=== PATIENT | female | born 1950 | race Caucasian/White ===

== ENCOUNTER 2017-01-16 06:01 | Inpatient (IN) | payer MEDICARE ==
--- OUTSIDE RECORDS SUMMARY | 2017-01-16 06:06 | XMS | Clinical Summary ---
:1950 Author Organization [facility] Address [address] [place] [address] Phone Care Team Providers Name Role Phone , Primary Care Provider Unavailable Allergies No Known Allergies Current Medications Prescription Sig. Disp. Refills Start Date End Date Status insulin glargine Inject subcutaneously Active (LANTUS) 100 unit/mL nightly Use as injection directed . insulin lispro Inject subcutaneously Active (HUMALOG) 100 unit/mL 3 (three) times daily injection before meals. ramipril (ALTACE) 10 Take 10 mg by mouth Active MG capsule daily. verapamil (CALAN-SR) Take 180 mg by mouth Active 180 MG CR tablet nightly. lovastatin (MEVACOR) Take 20 mg by mouth Active 20 MG tablet nightly. pioglitazone (ACTOS) Take 15 mg by mouth Active 15 MG tablet daily. chlorthalidone Take 25 mg by mouth Active (HYGROTON) 25 MG daily. tablet memantine (NAMENDA) 10 Take 10 mg by mouth 2 Active MG tablet (two) times daily. bromfenac 0.07 % Drop Apply to eye(s). Active difluprednate 0.05 % Apply to eye(s). Active Drop polymyxin B Place 1 drop into the Active sulf-trimethoprim left eye every 4 10,000 unit- 1 mg/mL (four) hours. Drop Active Problems Not on file Social History Tobacco Use Types Packs/Day Years Used Date Never Smoker Alcohol Use Drinks/Week oz/Week Comments No Sex Assigned at Date Recorded Not on file Last Filed Vital Signs Vital Sign Reading Time Taken Blood Pressure 121/54 08/24/2015 11:40 AM CDT Pulse 83 08/24/2015 11:50 AM CDT Temperature 37.1 C (98.8 F) 08/24/2015 11:33 AM CDT Respiratory Rate 16 08/24/2015 11:50 AM CDT Oxygen Saturation 97% 08/24/2015 11:50 AM CDT Inhaled Oxygen Concentration - - Weight 61.2 kg (135 lb) 08/24/2015 9:36 AM CDT Height 157.5 cm (5' 2") 08/24/2015 9:36 AM CDT Body Mass Index 24.69 08/24/2015 9:36 AM CDT Plan of Treatment Not on file Implants Implanted Type Area Structures Technician Device Expiration Model / Identifier Date Serial / Lot Iol Tecnis Zcb00 23.5 Robin [id number] - [id number] Ophthalmology [employer] 04/29/2019 [id number] / Implanted:Qty: 1 on 08/24/2015 by José Miguel Vaughan MD [id number] / Results Not on filefrom Last 3 Months
[2017-01-16] MEDS ORDERED: Heparin 5,000 UNITS/ML VIAL ONE (06:38)
[2017-01-16] MEDS ORDERED: Protamine Sulfate 50 MG/5 ML VIAL ONE (06:38)
[2017-01-16 06:44] LABS: #Eosinphils 0.2 thou/uL (0.0-0.7); #Monocytes 0.9 thou/uL (0.11-0.59); #Neutrophils 11.4 thou/uL (1.40-6.50); %Basophils 0.1 % (0.0-1.0); %Eosinophils 1.1 % (0.0-10.0); %Lymphocytes 24.2 % (21.0-51.0); %Monocytes 5.2 % (0.0-10.0); Red Blood Cell (RBC) Count 3.49 mill/uL (4.20-5.40); White Blood Cell (WBC) Count 16.5 thou/uL (4.8-10.8)
[2017-01-16 06:59] LABS: Anion Gap 16 mmol/L (10-20); BUN (Urea Nitrogen) 30 mg/dL (9.8-20.1); Calc. Creatinine Clearance 50 mL/min (70-130); Calcium 10.1 mg/dL (7.8-10.44); Carbon Dioxide 24 mmol/L (23-31); Chloride 101 mmol/L (98-107); Estimated GFR-MDRD 54
[2017-01-16] MEDS ORDERED: Fentanyl 100 MCG/2 ML VIAL ONE ×2 (07:10→07:35)
[2017-01-16] MEDS ORDERED: Propofol 200 MG/20 ML VIAL ONE (07:41)
[2017-01-16] MEDS ORDERED: Ondansetron HCl/PF 4 MG/2 ML Vial ONE (07:41)
[2017-01-16] MEDS ORDERED: PHENYLEPHRINE-NS 100 MCG/ML 10 ML SYRINGE ONE (07:41)
[2017-01-16] MEDS ORDERED: Lidocaine 2% PF 10 ML AMP (For Epidural Use) ONE (07:41)
[2017-01-16] MEDS ORDERED: Ondansetron HCl/PF 4 MG/2 ML Vial IVP PRN ×2 (10:04→10:05)
[2017-01-16] MEDS ORDERED: Acetaminophen 325 MG TAB PO PRN (10:04)
[2017-01-16] MEDS ORDERED: HYDROcodone/Acetaminophen 5/325 mg Tablet PO PRN ×2 (10:04)
[2017-01-16] MEDS ORDERED: Phenylephrine 10 MG/NS 250 ML 250 ML IVPB PRN (10:04)
[2017-01-16] MEDS ORDERED: DOPamine 400 MG/D5W 250 ML 250 ML IVPB PRN (10:04)
[2017-01-16] MEDS ORDERED: Morphine Sulfate 2 MG/ML SYRINGE SLOW IVP PRN (10:04)
[2017-01-16] MEDS ORDERED: Fentanyl 100 MCG/2 ML VIAL SLOW IVP PRN ×2 (10:04)
[2017-01-16] MEDS ORDERED: Nitroglycerin 50 MG/250 ML BOT 250 ML IVPB PRN (10:04)
[2017-01-16] MEDS ORDERED: Promethazine HCl 25 MG/ML VIAL IM PRN (10:04)
[2017-01-16] MEDS ORDERED: Insulin Regular 300 UNITS/3 ML VIAL SC PRN (10:04)
[2017-01-16] MEDS ORDERED: Meperidine HCl/PF 25 MG/ML VIAL SLOW IVP PRN (10:05)
[2017-01-16] MEDS ORDERED: Clopidogrel Bisulfate 75 MG TAB PO SCH (10:45)
--- NOTE | 2017-01-16 10:49 | OP ---
PREOPERATIVE DIAGNOSIS: Severe right carotid artery stenosis. SURGEON: Oh Clayton M.D. MANUFACTURING PLANT CONTROLLER: None. POSTOPERATIVE DIAGNOSIS: Severe right carotid artery stenosis. SPONGE AND NEEDLE COUNTS: Correct. ANESTHESIA: General. OPERATION PERFORMED: Right carotid endarterectomy with bovine pericardium patch angioplasty. FINDINGS AT OPERATION: Heavily calcified and friable plaque involving the bulb and proximal ICA. DESCRIPTION OF OPERATION: The patient was taken to the operating room. Following the induction of general endotracheal anesthesia, the patient was prepped and draped in the usual sterile fashion. Skin incision was made parallel to the anterior border of the sternocleidomastoid muscle and deepened through the subcutaneous tissues and platysma. Carotid sheath was entered, identifying the vagus nerve in its proper posterior position. It had to be gently teased off the CCA and ICA. There appeared to be some inflammatory tissues likely related to recent SALES SOLUTIONS ASSOCIATE shunt placement. Isolation of the CCA, ECA , and ICA was performed. Hypoglossal nerve was visualized, however, not manipulated. ICA had a medial posterior lie related to the ECA. Heparin dose was given. Fine vascular clamps were applied to the above-mentioned vessels. Arteriotomy was created extending across the bulb and ICA to a point above the plaque. The #10 shunt was employed. Endarterectomy was then performed in standard fashion. An excellent feathering point was achieved in the ICA requiring no tacking sutures. Meticulous attention was made to retrieving all residual debris including before and after irrigation with heparinized saline. The arteriotomy was then closed with the bovine pericardium patch and running 6- 0 Prolene suture. Prior to securing the patch the shunt was removed, the ICA backflushed, and the site again irrigated with heparinized saline. It should be mentioned that she did have excellent backbleeding from the ICA. Clamps were removed from the ECA, CCA, and ICA in that order. Heparin was partially reversed with protamine. Copious irrigation was performed. Meticulous hemostasis was assured. Wound was then closed in layers with running 2-0 Vicryl sutures followed by skin closure with a 4-0 Vicryl subcuticular stitch. Dermabond was applied. The patient was subsequently awakened and taken to the recovery room. Blood loss negligible. MTDD
[2017-01-16] MEDS: Sodium Chloride 0.9% 1,000 ML IV SCH (11:51)
[2017-01-16 11:54] VITALS: BMI 25.0
[2017-01-16] MEDS: AcetaZOLAMIDE 250 MG TAB PO SCH ×3 (12:39→20:17)
[2017-01-16] MEDS: HumaLOG 300 UNITS/3 ML VIAL SC PRN ×3 (12:40→20:19)
[2017-01-17] MEDS: Sodium Chloride 0.9% 1,000 ML IV SCH (06:18)
[2017-01-17] MEDS: HumaLOG 300 UNITS/3 ML VIAL SC PRN ×2 (06:25→07:48)
[2017-01-17 07:49] VITALS: TEMP 98.7
[2017-01-17 08:33] VITALS: BP 156/53
[2017-01-17] MEDS: AcetaZOLAMIDE 250 MG TAB PO SCH (08:33)
[2017-01-17] MEDS ORDERED: Chlorthalidone 25 MG TAB PO SCH (09:00)
[2017-01-17] MEDS ORDERED: INSULIN GLARGINE HUM REC ANLOG 26 UNIT SC SCH (09:00)
[2017-01-17] MEDS ORDERED: PRE FILLED SC SCH (09:00)
[2017-01-17] MEDS ORDERED: Ramipril 5 MG CAP PO SCH (09:00)
[2017-01-17] MEDS ORDERED: INSULIN DETEMIR SC SCH (09:00)
[2017-01-17] MEDS ORDERED: Clopidogrel Bisulfate 75 MG TAB PO SCH (09:00)
[2017-01-17] MEDS ORDERED: Atorvastatin Calcium 40 MG TAB PO SCH (09:00)
--- NOTE | 2017-01-17 09:59 | DIS ---
REASON FOR ADMISSION: Right carotid endarterectomy. CLINICAL RESUME: The patient is a 66-year-old female who was recently found to have a severe right carotid artery stenosis. Left side had mild to moderate disease. Recommendation was made to proceed with elective right CEA. Yesterday , the patient was admitted and underwent right CEA with bovine pericardium patch angioplasty. See operative report for details. Her postoperative course has been unremarkable and as of today she was considered stable for discharge. Followup will be arranged in our office in 2 weeks or sooner p.r.n. DIET: 1800 calorie ADA. WOUND CARE: As instructed. ACTIVITY: Light for the next 4-5 days. DISCHARGE MEDICATIONS: She is to resume her complete home regimen without change including the daily Aspirin 81mg. New medication: Plavix 75 mg daily for 1 month. MTDD
== END 2017-01-17 09:00 | disposition home or self-care (01) | DRG 38 ==
LOC: SURG A 06:01 → CCU 11:21
PROVIDERS: ADMIT Thoracic Surgery (Cardiothoracic Vascular Surgery); ATTEND Thoracic Surgery (Cardiothoracic Vascular Surgery)
PROC: 03CK0ZZ Extirpation of Matter from Right Internal Carotid Artery, Open Approach (ICD-10-PCS; principal; 2017-01-16)
PROC: 03UK0KZ Supplement Right Internal Carotid Artery with Nonautologous Tissue Substitute, Open Approach (ICD-10-PCS; 2017-01-16)
DX: I65.23 Occlusion and stenosis of bilateral carotid arteries (principal); G91.2 (Idiopathic) normal pressure hydrocephalus; Z98.2 Presence of cerebrospinal fluid drainage device; E11.9 Type 2 diabetes mellitus without complications; Z79.4 Long term (current) use of insulin; E78.2 Mixed hyperlipidemia; I10 Essential (primary) hypertension
CPT/HCPCS: 36415; 36416; 80048; 85025; 94640; J0360; J1642; J1644; J1815; J2001; J2405; J2704; J2720; J3010; J7620

== ENCOUNTER 2017-01-30 18:02 | Observation (INO) | payer MEDICARE ==
[2017-01-30] MEDS ORDERED: Insulin Regular 300 UNITS/3 ML VIAL ONE (19:26)
[2017-01-30] MEDS ORDERED: Ondansetron ODT 4 MG TAB PO PRN (20:17)
[2017-01-30] MEDS ORDERED: Acetaminophen 325 MG TAB PO PRN (20:17)
[2017-01-30] MEDS ORDERED: cefTRIAXone\\ROCEPHIN 1 GM in Sodium Chloride 0.9% 100 ML IVPB SCH (20:30)
[2017-01-30 20:44] VITALS: BMI 23.4
[2017-01-30] MEDS: Sodium Chloride 0.9% 1,000 ML IV SCH ×2 (21:05→23:41)
[2017-01-30] MEDS: Potassium Chloride 40 MEQ in Sodium Chloride 0.9% 500 ML IVPB SCH (21:05)
[2017-01-30] MEDS: Famotidine 20 MG TAB PO SCH (21:13)
[2017-01-30 21:49] LABS: Bilirubin Negative (Negative); Blood, Urine Small (Negative); Glucose, Urine (Dipstick) >=1000 mg/dL (Negative); Ketone, Urine Negative (Negative); Nitrite Negative (Negative); Protein, Urine (Dipstick) 100 mg/dL (Neg-Trace); Urobilinogen 0.2 mg/dL (0.2-1.0)
[2017-01-30 21:50] LABS: Bacteria/HPF None Seen HPF (None Seen); Hyaline Casts/LPF 0-3 HYALINE CAST LPF (0-3 Hyaline); Squamous Epithelial 0-3 HPF (0-3); WBC/HPF 0-3 HPF (0-3)
[2017-01-30] MEDS ORDERED: Dextrose 50% Abboject 50 ML SYRINGE SLOW IVP PRN ×2 (21:54→22:45)
[2017-01-30] MEDS ORDERED: Dextrose 5% in Water 1,000 ML IV PRN ×2 (21:54→22:45)
[2017-01-30 22:04] LABS: Hemoglobin A1c 7.7 % (4.0-6.0)
[2017-01-30] MEDS ORDERED: Famotidine 20 MG TAB PO SCH (22:30)
[2017-01-30] MEDS ORDERED: Ramipril 5 MG CAP PO SCH (22:30)
[2017-01-30] MEDS ORDERED: Prevnar 13-Val Conj/PF 0.5 ML SYRINGE IM ONE (22:30)
[2017-01-30] MEDS ORDERED: Clopidogrel Bisulfate 75 MG TAB PO SCH (22:45)
[2017-01-30] MEDS ORDERED: HumaLOG 300 UNITS/3 ML VIAL SC PRN (22:45)
[2017-01-30] MEDS ORDERED: Atorvastatin Calcium 40 MG TAB PO SCH (22:45)
--- NOTE | 2017-01-30 22:54 | PDOC.EVN ---
Event Note - Event Note Event Note: Attending H&P I personally evaluated the patient and discussed the management with Dr. Narvaez. I have reviewed the H&P and it is repeated by me. I agree with the History, Examination, Assessment and Plan documented above with any addition or exceptions noted below. Mrs Rodriguez had syncope today. Likely etiology is Orthostatic Hypotension due ti dehydration secondary to diuretic and glucosuria wihtout compensatory po fluid intake. Treatment with fluids should resolve this. NS adn Vasc surg will see her inlight of her recent Carotid endarterectomy and CERTIFIED MASTER SAFECRACKER Shunt placement. The other concern is her persistently elevated WBC count. There are no signs or symptoms of infection. Cultures from her last admission were all negative. I am inclined to think this a myeloproliferative process. A PB Smear will be obtained. Although Cultures were obtained in the ER, I am holding antibiotics. We will discuss with NS if CSF cultures should be obtained. There is currently no signs or symptoms of meningitis. Her BP is not controlled. She is asymptomatic. She missed her evening dose of BP meds. Thee are coming up from pharmacy now. In addition to her regularly scheduled meds we are adding hydralazine prn. We will obtain a Renal artery Doppler in light of her requiring 3-4 meds. ISS for her DM management.
[2017-01-30 23:21] LABS: Hematocrit 27.4 % (36.0-47.0); Mean Platelet Volume 7.8 fL (7.4-10.4); Neutrophil 73 % (42-75); Red Blood Cell (RBC) Count 2.96 mill/uL (4.20-5.40); White Blood Cell (WBC) Count 16.1 thou/uL (4.8-10.8)
[2017-01-31] MEDS ORDERED: Potassium Chloride 40 MEQ in Sodium Chloride 0.9% 500 ML IVPB SCH (00:30)
[2017-01-31] MEDS: Sodium Chloride 0.9% 1,000 ML IV SCH ×3 (00:35→17:37)
[2017-01-31] MEDS: Potassium Chloride 40 MEQ in Sodium Chloride 0.9% 500 ML IVPB SCH (00:35)
[2017-01-31] MEDS ORDERED: Labetalol HCl 100 MG/20 ML VIAL SLOW IVP PRN (00:35)
--- NOTE | 2017-01-31 03:52 | HP-2 ---
CODE STATUS: FULL. PRIMARY CARE PHYSICIAN: Jalyn jiang. ATTENDING PHYSICIAN: Anmol Flaherty M.D. PGY-1: Kofi Narvaez MD CHIEF COMPLAINT: Syncope. HISTORY OF PRESENT ILLNESS: We have a 66-year-old female who presents for a syncopal episode that occurred around noon today. She states she was at the checkout at a grocery store and felt like she was going to blackout. She does not know if she felt sweaty or pale but just felt like she was going to go down. She denies vision changes, shortness of breath, chest pain, unilateral weakness at that time. She notes her blood sugar was 280s at that time that was checked after she fell down. She was transferred to from [place] because of her recent surgeries of a shunt placement and a carotid endarterectomy within the last 6 weeks. PAST MEDICAL HISTORY: She has diabetes mellitus type 1, hypertension, and hyperlipidemia. PAST SURGICAL HISTORY: She has had a hysterectomy and cataract surgeries in the past. She also had a shunt placement and CEA in 2017. ALLERGIES: She has no known drug allergies. MEDICATIONS: She is on atorvastatin 40 mg, ramipril 10 mg b.i.d., Lantus 26 units in the morning, chlorthalidone 12.5 mg, aspirin 81 mg, clopidogrel 75 mg, pioglitazone 15 mg, and memantine unsure of the dosage. FAMILY HISTORY: Her mom had of heart disease and her dad had dementia. SOCIAL HISTORY: She denies tobacco, alcohol, or drug use. REVIEW OF SYSTEMS: GENERAL: She denies any fevers, weight changes, or night sweats. She does admit to chills. EYES: She denies any vision changes or eye pain. ENT: She admits to nasal congestion, rhinorrhea. RESPIRATORY: She admits to cough, congestion. Denies shortness of breath. CARDIOVASCULAR: Denies chest pain, palpitations. GASTROINTESTINAL: She admits to nausea. Denies vomiting or diarrhea. She does admit to constipation. Denies abdominal pain or GI bleeding. GENITOURINARY: Denies incontinence or dysuria, but she did note some slowing of her urination stream. SKIN: She denies any rashes, lesions, jaundice, or itching. MUSCULOSKELETAL: She denies any pain, tenderness, stiffness, or swelling. NEUROLOGIC: She denies any weakness or numbness. She does admit to syncopal episodes in the past that were from low blood sugar. PSYCHIATRIC: She denies anxiety or depression history. PHYSICAL EXAMINATION: VITAL SIGNS: Blood pressure was 173/60, pulse was 94, respirations were 16, temperature max was 98.4, pulse ox 98% on room air, current weight is 61 kilos. GENERAL: She is alert and oriented x4. She is appropriately interactive. EYES: PERRLA. Conjunctivae are within normal limits. ENT: Nasal mucosa and oropharynx were within normal limits. NECK: Supple, without lymphadenopathy, without thyromegaly. She does have bilateral bruits present. She has evidence of the right carotid endarterectomy that was performed 3 weeks ago. CARDIOVASCULAR: Regular rate and rhythm. She does have a murmur present. Radial pulses and pedal pulses are equal and present bilaterally. RESPIRATORY: Normal effort, no retractions. Lungs were clear to auscultations bilaterally. SKIN: Warm and dry. ABDOMEN: Soft, nontender to palpation. She had bowel sounds present x4. No masses or distention. EXTREMITIES: She denied any clubbing, cyanosis, or edema, but she does have multiple ecchymoses from her recent fall at the grocery store. MUSCULOSKELETAL: Structure, tone, muscle strength, and range of motion within normal limits. NEUROLOGIC: She had no focal neurologic deficits. Cranial nerves II through XII grossly intact. GCS was 15. PSYCHIATRIC: She was appropriate. LABORATORY DATA: These were obtained from an outside ER. Her white blood cell count of 25.36, platelet count of 473, hemoglobin 10.3, hematocrit 29.5, MCV 85.3. Sodium 145, potassium 3.2, chloride 103, bicarbonate 26, BUN 23.4, creatinine 1.2, calcium 10.66, total protein 7.8, albumin 3.9, total bilirubin 0.2, AST 10, ALT 11, alkaline phosphatase 191, lactate was 3.7. CK was 41, CK- MB was 0.5, troponin I was less than 0.01. She had a CT of her brain at the outside ER showed nothing acute, did show a shunt catheter in place with minimal decrease in size of ventricles as compared to the previous. She also had a chest x-ray that showed nothing acute. ASSESSMENT AND PLAN: A 66-year-old female with a past history of diabetes mellitus type 1, hypertension, hyperlipidemia, and hydrocephalus that presents with: 1. Syncopal episode. We are going to get an echocardiogram. We are going to repeat her orthostatics because those were positive in the outside ER. We have the imaging results and we will consider a Neurosurgery consult as well as a cardiovascular consult for her recent surgeries. We are going to get a repeat EKG and get a urinalysis to see if we can find out if an infection is the cause. 2. Systemic inflammatory response syndrome. She has an increased white blood cell count and increased heart rate. We are going to check a urinalysis. Her chest x-ray was negative. We have urine cultures and blood cultures pending. During her last hospitalization, she had this leukocytosis and Dr. Dominguez with ID was consulted at that time and thought to be a urinary retention. She had multiple studies at that time and they were all negative and so we will work this up again. We will await antibiotic therapy unless she fevers. 3. She has an elevated lactate level. We are going to give her IV fluids. We will repeat her lactate until it is normalized. 3. Hypertensive urgency. We will restart her home medications. She has also had low BP as well, so we will repeat those orthostatics. We will continue to monitor and we are going to provide hydralazine every 15 minutes p.r.n. for systolic blood pressure greater than 180. 4. Type 1 diabetes mellitus. We are going to continue her home medications except for pioglitazone and put her on a sliding scale insulin with Accu-Cheks. 5. Hyperlipidemia. We will continue her statin. 6. Hydrocephalus with a ventriculoperitoneal shunt. We will consider consulting Neurosurgery in the morning. 7. Bilateral carotid stenosis with bruit. She just had a CEA about 3 weeks ago that showed 80% in the right side, 50% in the left side. The right side was operated on, so we will consider a consultation with the surgeon who performed that going forward. 8. Leukocytosis. We will monitor CBC. We will hold off starting Rocephin unless she fevers and we will give her IV fluids. 9. Mild hypokalemia. We will supplement her with 40 mEq of potassium chloride going forward and we will monitor that with daily BMPs. Disposition and length of hospital stay will be tele and observation. Symptomatic medications will be provided. History and physical exam, as well as management, has been discussed with Dr. Flaherty. JOLENE
[2017-01-31 05:02] LABS: #Basophils 0.1 thou/uL (0.0-0.2); #Eosinphils 0.1 thou/uL (0.0-0.7); #Lymphocytes 3.7 thou/uL (1.20-3.40); #Neutrophils 12.6 thou/uL (1.40-6.50); %Basophils 0.5 % (0.0-1.0); %Eosinophils 0.6 % (0.0-10.0); %Lymphocytes 21.2 % (21.0-51.0); %Monocytes 5.6 % (0.0-10.0); Hematocrit 26.4 % (36.0-47.0); Mean Platelet Volume 7.5 fL (7.4-10.4); Red Blood Cell (RBC) Count 2.82 mill/uL (4.20-5.40); White Blood Cell (WBC) Count 17.5 thou/uL (4.8-10.8)
[2017-01-31 05:41] LABS: Anion Gap 10 mmol/L (10-20); BUN (Urea Nitrogen) 16 mg/dL (9.8-20.1); Calc. Creatinine Clearance 64 mL/min (70-130); Calcium 9.1 mg/dL (7.8-10.44); Carbon Dioxide 24 mmol/L (23-31); Chloride 108 mmol/L (98-107); Estimated GFR-MDRD 73
[2017-01-31] MEDS: HumaLOG 300 UNITS/3 ML VIAL SC PRN ×2 (06:05→08:40)
--- NOTE | 2017-01-31 07:00 | PDOC.FM ---
- Subjective Subjective: Patient doing well this morning, she has remained asymptomatic overnight. Has no questions or concerns. Denies dizziness, lightheadedness, chest pain, palpitations, n/v/d. - Objective MAR Reviewed: Yes Vital Signs & Weight: Vital Signs (12 hours) Temp Pulse Resp BP BP BP BP 01/31/17 03:55 99.2 F 98 18 176/73 H 01/30/17 22:57 204/86 H 01/30/17 22:00 187/78 H 194/78 H 01/30/17 20:25 98.4 F 106 H 16 226/88 H BP Pulse Ox 01/31/17 03:55 98 01/30/17 22:57 01/30/17 22:00 218/86 H 01/30/17 20:25 98 Weight Weight 58.189 kg I&O: 01/29/17 01/30/17 01/31/17 06:59 06:59 06:59 Intake Total 2025 Balance 2025 Result Diagrams: 01/31/17 04:40 01/31/17 04:40 EKG Reviewed by me: Yes Radiology Reviewed by me: Yes Phys Exam - Physical Examination Constitutional: NAD HEENT: moist MMs, sclera anicteric Neck: supple, full ROM Respiratory: no wheezing, no rales, no rhonchi, clear to auscultation bilateral Cardiovascular: RRR, no significant murmur, no rub Gastrointestinal: soft, non-tender, no distention Musculoskeletal: no edema Neurological: non-focal, moves all 4 limbs Psychiatric: normal affect, A&O x 3 Dx/Plan (1) Episode of syncope Code(s): R55 - SYNCOPE AND COLLAPSE Status: Acute Plan: Syncopal episode without any symptoms -likely secondary to orthostatic hypotension -patient has glucosuria and is on diuretic -IVFs @ 150 -consult neurosurg, due to recent shunt placement -consult cardiovasc, due to recent CEA (2) Hypertensive urgency Code(s): I16.0 - HYPERTENSIVE URGENCY Status: Acute Plan: Patient missed night dose of 3 BP meds, asymptomatic -will restart those meds and PRN hydralazine -continue to monitor BPs closely -recent BP 196/79 (3) HLD (hyperlipidemia) Code(s): E78.5 - HYPERLIPIDEMIA, UNSPECIFIED Status: Chronic Plan: Continue home meds (4) Type 1 diabetes mellitus Status: Chronic Plan: On detemir, 26 U. Mild SSI -accuchecks (5) NPH (normal pressure hydrocephalus) Code(s): G91.2 - (IDIOPATHIC) NORMAL PRESSURE HYDROCEPHALUS Status: Chronic Plan: -s/p shunt placement -consult neurosurg (6) SIRS (systemic inflammatory response syndrome) Code(s): R65.10 - SIRS OF NON-INFECTIOUS ORIGIN W/O ACUTE ORGAN DYSFUNCTION Status: Acute Plan: due to tachycardia and elevated WBC on admission -lactic acid was also 3.7 on admission -has since down trended to 1.6 -HR is upper 90s -will continue to monitor vitals closely
--- NOTE | 2017-01-31 08:02 | ULT ---
BILATERAL RENAL ULTRASOUND WITH DUPLEX: (lam scale, color flow, and spectral Doppler) HISTORY: Hypertension. FINDINGS: The right kidney measures 10.6 cm in length and the left kidney measures 12.6 cm in length. No foca l mass or hydronephrosis is seen on either side. Cortical echogenicity and thickness is normal. Th e urinary bladder is unremarkable. The peak systolic velocity in the right renal artery 93 cm/s and the left renal artery measures 78 c m/s. The renal artery to aortic ratios measure 0.65 on the right and 0.54 on the left. The resisti ve indices in the arcuate arteries measure 0.82 on the right and 0.77 on the left. IMPRESSION: 1. Unremarkable exam. 2. No evidence of hemodynamically significant renal artery stenosis. POS: HEATHER
[2017-01-31] MEDS: INSULIN DETEMIR SC SCH (08:39)
[2017-01-31] MEDS: PRE FILLED SC SCH (08:39)
[2017-01-31] MEDS: Chlorthalidone 25 MG TAB PO SCH (08:41)
[2017-01-31] MEDS: Aspirin 81 mg Enteric Coated Tablet PO SCH (08:41)
[2017-01-31] MEDS: Ramipril 5 MG CAP PO SCH ×2 (08:44→20:04)
[2017-01-31] MEDS: Famotidine 20 MG TAB PO SCH ×2 (08:44→20:06)
[2017-01-31] MEDS ORDERED: FLU VACC TS2017-18 (>65YR) 0.5 ML SYRINGE IM ONE (09:00)
[2017-01-31] MEDS ORDERED: INSULIN GLARGINE HUM REC ANLOG 26 UNIT SC SCH (09:00)
[2017-01-31 09:12] LABS: Critical Call w/ Read Back 877737
--- NOTE | 2017-01-31 13:32 | ULT ---
GALLBLADDER ULTRASOUND: HISTORY: Right upper quadrant pain. FINDINGS: Real-time imaging of the right upper quadrant shows a normal-appearing gallbladder. The common duct is 3 mm. The technologist reports a negative Ultrasound Rivera's sign. Visualized liver parenchym a shows no focal abnormalities. The right kidney is normal in size and not obstructed. IMPRESSION: Unremarkable gallbladder ultrasound. POS: OFF
--- NOTE | 2017-01-31 13:58 | ADD-PRG ---
DATE OF SERVICE: 01/31/2017 ADDENDUM This is an addendum to the note of Dr. Murray Huggins. Ms. Rodriguez is a very pleasant 66-year-old white female patient admitted with a syncopal episode that could possibly be related to orthostatic hypotension. Interestingly, she has an elevated white coun t and has had an elevated white count since at least early November of this year. She has also had yusuf rgery for carotid artery disease and for normal pressure hydrocephalus with a DIETETIC ASSISTANT shunt placed. Toda y, she is pleasant, alert, and in fact feels well. She denies any history at home of fever, chills, night sweats or weight loss. In reviewing her labs since early November, her white count has been co nsistently elevated with a normal differential. She also has had normal platelets throughout. She has recently developed what appears to be a normocytic normochromic anemia which possibly is related to her several hospitalizations and surgeries, although this will be investigated further. She had an extensive workup with Dr. Dominguez for infectious causes of her elevated white count. I doubt that this is myeloproliferative disorder given the fact that all cell lines are normal except for the he moglobin and elevated white count with, however, a normal differential. We will proceed with an ech ocardiogram to consider the possibility of bacterial endocarditis even though she has no fever and b lood cultures so far have been negative. We will proceed also with a right upper quadrant ultrasoun d given that she is having episodic vomiting. We will touch base again with Infectious Disease. I understand Dr. Dominguez is out of town, so we may consult with Dr. Huddlesotn for further workup of her l eukocytosis.
[2017-01-31 18:01] LABS: IRF 0.266 Ratio (0.163-0.362); Reticulocyte Count 2.7 % (0.5-1.5)
[2017-01-31 18:35] LABS: Iron 33 ug/dL (50-170)
[2017-01-31] MEDS ORDERED: Atorvastatin Calcium 40 MG TAB PO SCH (21:00)
[2017-01-31] MEDS ORDERED: Clopidogrel Bisulfate 75 MG TAB PO SCH (21:00)
--- NOTE | 2017-01-31 21:37 | CON ---
DATE OF CONSULTATION: 01/31/2017 HISTORY OF PRESENT ILLNESS: Ms. Rodriguez is a 66-year-old female, who I saw in her room this morning. She came in yesterday after a syncopal episode in which she was checking on a grocery store and end ed up blacking out and hitting her head. She denies any vision changes, shortness of breath, chest pain, unilateral weakness, appetite. Her blood sugars noted to be around 280. I saw Ms. Rodriguez is a patient of Dr. Marcelo as she had a ventriculoperitoneal shunt placed on 12/03/2016 and has a [facility] appointment with a repeat CT of the brain on 02/12/[address] Marcelo. On my neurologic ex am, she has no symptoms of meningitis and is afebrile, but she has been hypertensive with systolic b lood pressure ranging between 170 and 204 mmHg. There are no neurologic deficits on her exam. Her shunt valve was compressive and there is no erythema around the incision site or purulent discharge or signs of infection. Neurosurgery was consulted because of the history of shunt placement in mid 11/2016. PAST MEDICAL HISTORY: Includes diabetes mellitus type 1, hypertension, hyperlipidemia. PAST SURGICAL HISTORY: Hysterectomy, shunt placement, and CEA 2017, and cataract surgeries. ALLERGIES: No known drug allergies. MEDICATIONS: 1. Atorvastatin 40 mg. 2. Ramipril 10 mg p.o. b.i.d. 3. Lantus 26 units in the morning. 4. Chlorthalidone 12.5 mg. 5. Aspirin 81 mg. 6. Clopidogrel 75 mg. 7. Pioglitazone 15mg. 8. We will maintain unsure of the dosage. FAMILY HISTORY: Mom of heart disease and her dad has dimensions, also has chronic stenosis dom t she had. SOCIAL HISTORY: She denies any tobacco, alcohol, or drug use. REVIEW OF SYSTEMS: A 12-point review of systems completed this afternoon and is otherwise negative unless stated in the above HPI. PHYSICAL EXAMINATION: VITAL SIGNS: Currently, temperature 98.3, pulse 96, respirations 16, O2 saturation 97%, and her blo od pressure is 152/68. HEENT: Normocephalic, atraumatic. Hearing intact. Moist mucous membranes. Trachea midline. She does have a bruise above the right eye and a small hematoma below the right eye. EYES: Pupils are equal and reactive to light. Extraocular muscles are intact. Sclerae are white, nonicteric. NECK: Subtle without lymphedema and there is no nuchal rigidity. There is evidence of a right velasquez tid endarterectomy that was performed 3 weeks ago. CARDIOVASCULAR: Regular rate and rhythm. She does have a heart murmur present. Radial pulses and pedal pulses are equal and symmetric bilaterally. RESPIRATORY: The patient has bilateral symmetric chest rise. Appears to have no distal cyanosis or clubbing, or no shortness of breath. SKIN: Warm and dry. EXTREMITIES: She has no edema. Multiple ecchymoses from her recent fall in the grocery store. MUSCULOSKELETAL: She has good 5/5 muscle strength in bilateral upper and lower extremities. There is no dermatomal sensory loss in upper and lower extremities bilaterally. NEUROLOGIC: Cranial nerves II through XII are grossly intact. Speech is fluent and she answers que stions appropriately. Her GCS is 15. PSYCHIATRIC: She is appropriate for age. LABORATORY DATA: White blood cell count 17.5, red blood cell count of 2.82, hemoglobin 8.7, hematoc rit 26.4. On chemistry exam, her glucose is 190. Her iron is 33. TIBC is 239 and lactate dehydrog enase is 224. Her urine yesterday showed the urine protein of 100, urine glucose greater than 1000, and a small amount of blood in the urine. ASSESSMENT: Ms. Rodriguez is a 66-year-old female with past medical history as mentioned in the HPI, an d a ventriculoperitoneal shunt placement by Dr. Marcelo on 12/03/2016. She presents with a syncopa l episode and systemic inflammatory response syndrome. PLAN: There is no emergent neurosurgical indications for Ms. Rodriguez at this time. Images have been reviewed and compared to past images of her CT scans of the brain that showed no significant differe nce in actual improvement after the shunt placement of the normal pressure hydrocephalus. Dr. Julia roman has also reviewed the images and the patient can follow up with Dr. Marcelo in the office at er planned appointment on 02/12/2017. If there is any further questions, please feel free to contac t Neurosurgery at this time, we will sign off unless there is new neurologic deficits that is noted. If there are any further questions, please feel free to contact Neurosurgery anytime.
[2017-02-01] MEDS: Sodium Chloride 0.9% 1,000 ML IV SCH (00:30)
[2017-02-01 07:03] LABS: #Basophils 0.1 thou/uL (0.0-0.2); #Eosinphils 0.2 thou/uL (0.0-0.7); #Lymphocytes 2.8 thou/uL (1.20-3.40); #Monocytes 0.7 thou/uL (0.11-0.59); #Neutrophils 9.1 thou/uL (1.40-6.50); %Eosinophils 1.9 % (0.0-10.0); %Lymphocytes 21.5 % (21.0-51.0); %Monocytes 5.2 % (0.0-10.0); Hematocrit 25.1 % (36.0-47.0); Mean Platelet Volume 7.8 fL (7.4-10.4); Red Blood Cell (RBC) Count 2.71 mill/uL (4.20-5.40); White Blood Cell (WBC) Count 12.9 thou/uL (4.8-10.8)
[2017-02-01 08:14] VITALS: TEMP 98.8
--- NOTE | 2017-02-01 08:54 | PDOC.FM ---
- Subjective Subjective: Patient doing well this morning, no complaints. States that her symptoms have improved since yesterday. Denies chest pain, dyspnea, n/v/d, abdominal pain. Still has occasional "swaying" feeling. No dizziness or vertigo. - Objective MAR Reviewed: Yes Vital Signs & Weight: Vital Signs (12 hours) Temp Pulse Resp BP BP BP BP 02/01/17 07:15 98.8 F 94 16 154/67 H 139/65 208/84 H 02/01/17 04:10 87 18 169/72 H 01/31/17 22:35 179/74 H 01/31/17 22:03 90 207/84 H 01/31/17 22:00 207/84 H Pulse Ox 02/01/17 07:15 97 02/01/17 04:10 01/31/17 22:35 01/31/17 22:03 01/31/17 22:00 Weight Weight 58.189 kg I&O: 01/31/17 02/01/17 02/02/17 06:59 06:59 06:59 Intake Total 2025 262 Balance 2025 262 Result Diagrams: 02/01/17 06:47 01/31/17 04:40 Radiology Reviewed by me: Yes Phys Exam - Physical Examination Constitutional: NAD HEENT: moist MMs, sclera anicteric Neck: supple, full ROM Respiratory: no wheezing, no rales, no rhonchi, clear to auscultation bilateral Cardiovascular: RRR, no significant murmur, no rub Gastrointestinal: soft, non-tender, no distention Musculoskeletal: no edema Neurological: non-focal, moves all 4 limbs Psychiatric: normal affect, A&O x 3 Dx/Plan (1) Episode of syncope Code(s): R55 - SYNCOPE AND COLLAPSE Status: Acute Plan: Syncopal episode without any symptoms -likely secondary to orthostatic hypotension -patient has glucosuria and is on diuretic -d/c'd IVFs this morning -neurosurgery recommended to keep normal OP follow visit -cardiovascular did not have any intervention, cleared from their standpoint (2) Hypertensive urgency Code(s): I16.0 - HYPERTENSIVE URGENCY Status: Acute Plan: Patient missed night dose of 3 BP meds, asymptomatic -continue home meds and TID hydralazine at home -continue to monitor BPs closely at home -follow up with Dr. Vega in [place] early next week (3) HLD (hyperlipidemia) Code(s): E78.5 - HYPERLIPIDEMIA, UNSPECIFIED Status: Chronic Plan: Continue home meds, no changes (4) Type 1 diabetes mellitus Status: Chronic Plan: On detemir, 26 U. Mild SSI -accuchecks -continue normal regimen at home (5) NPH (normal pressure hydrocephalus) Code(s): G91.2 - (IDIOPATHIC) NORMAL PRESSURE HYDROCEPHALUS Status: Chronic Plan: -s/p shunt placement -neurosurg no intervention, advised to keep scheduled f/u appt OP (6) SIRS (systemic inflammatory response syndrome) Code(s): R65.10 - SIRS OF NON-INFECTIOUS ORIGIN W/O ACUTE ORGAN DYSFUNCTION Status: Acute Plan: Resolved due to tachycardia and elevated WBC on admission -lactic acid was also 3.7 on admission -has since down trended to 1.6 -HR is upper 90s -will continue to monitor vitals closely
[2017-02-01] MEDS: Aspirin 81 mg Enteric Coated Tablet PO SCH (09:24)
[2017-02-01] MEDS: Famotidine 20 MG TAB PO SCH (09:24)
[2017-02-01] MEDS: Ramipril 5 MG CAP PO SCH (09:25)
[2017-02-01] MEDS: Chlorthalidone 25 MG TAB PO SCH (09:26)
[2017-02-01] MEDS: INSULIN DETEMIR SC SCH (09:28)
[2017-02-01] MEDS: PRE FILLED SC SCH (09:28)
[2017-02-01] MEDS: HumaLOG 300 UNITS/3 ML VIAL SC PRN (11:29)
--- NOTE | 2017-02-01 11:33 | ADD-PRG ---
DATE OF SERVICE: 02/01/2017 ADDENDUM Please add as an addendum to the note of Dr. Murray Huggins. Ms. Rodriguez is pleasant, awake and alert t his morning. No distress. I have re-reviewed her previous workup of leukocytosis which was very ex tensive. This is likely a stress leukocytosis from her syncopal episode coupled with her recent macy geries. In the event, she is told to please follow up with her PCP to follow this. She also has wh at initially appears as anemia of chronic disease which also needs to be followed. Otherwise, she f eels fine and is ready for discharge.
[2017-02-01 11:39] VITALS: BP 135/57
[2017-02-01 15:23] LABS: Folate,Hemolysate 355.4 ng/mL (Not Estab.); Hematocrit 24.9 % (34.0-46.6); RBC Folate Test Component 1427 ng/mL (>498)
--- NOTE | 2017-02-01 15:30 | DIS-2 ---
DATE OF ADMISSION: 01/30/2017 DATE OF DISCHARGE: 02/01/2017 RESIDENT: Murray Huggins MD ADMITTING ATTENDING: Anmol Flaherty MD DISCHARGE ATTENDING: Mikel Slaughter MD CONSULTATIONS: 1. Neurosurgery on 01/31/2017. 2. Cardiovascular Surgery, Dr. Clayton on 01/31/2017. PROCEDURES: 1. Renal ultrasound on 01/30/2017. Impression: Unremarkable exam. No evidence of hemodynamically significant renal artery stenosis. 2. Abdomen ultrasound on 01/31/2017. Impression: Unremarkable gallbladder ultrasound. 3. Echocardiogram on 01/31/2017, ejection fraction is visually estimated at 60%-65%, grade I/III di astolic dysfunction, mitral annular calcification is present. Mild mitral regurgitation and mild tr icuspid regurgitation. PRIMARY DIAGNOSIS: Orthostatic hypotension. SECONDARY DIAGNOSES: 1. Episode of syncope. 2. Hypertensive urgency. 3. Hyperlipidemia. 4. Type 1 diabetes mellitus. 5. Leukocytosis. DISCHARGE MEDICATIONS: 1. Lipitor 40 mg p.o. at bedtime. 2. Venlafaxine 75 mg p.o. daily. 3. Ramipril 10 mg p.o. b.i.d. 4. Memantine HCL 10 mg p.o. b.i.d. 5. Chlorthalidone 12.5 mg p.o. daily. 6. Lantus 26 units subcu daily. 7. Actos 15 mg p.o. daily. 8. Aspirin 81 mg p.o. daily. 9. Verapamil 180 mg p.o. b.i.d. 10. Plavix 75 mg p.o. at bedtime. 11. Ferrous sulfate 325 mg p.o. daily. 12. Hydralazine 10 mg p.o. t.i.d. The only new home medications are ferrous sulfate 325 mg and hydralazine 10 mg. DISCONTINUED MEDICATIONS: 1. Rocephin 1 gram. 2. Famotidine 20 mg p.o. HISTORY OF PRESENT ILLNESS AND HOSPITAL COURSE: Nini Rodriguez is a 66-year-old female with a past [facility] history of type 1 diabetes, recent shunt placement in November and recent carotid endarterectomy within the last 6 weeks, who presents after a syncopal episode that occurred around noon, the day of admission. She states that she was at the checkout at the grocery store and she felt like she was going to blackout. She does not know if she felt sweaty or pale but just felt like she was going to go down. She denies vision changes, shortness of breath, chest pain, and unilateral weakness at at time. She notes that her blood sugar was in the 280s at that time whenever she fell down in the store. She was transferred to [facility] from [place] because of recent surgeries of shunt placement an d carotid endarterectomy within the last 6 weeks. On admission, her blood pressure was 173/60, puls e of 94, temperature was 98.4, pulse ox 98% on room air. She was alert and oriented x4 and appropri ate, interactive. Physical exam was otherwise normal. Carotid endarterectomy site on the right zeus e of her neck looked nonerythematous, no swelling, looked like normal healing incision. Labs on adm ission were white blood cell count of 25, platelet count of 473,000, hemoglobin of 10.3, hematocrit of 29.5, MCV of 85.3. Sodium 145, potassium 3.2, chloride 103, bicarbonate 26, BUN 23.4, creatinine 1.2, calcium 10.66, total protein 7.8, albumin 3.9, total bilirubin 0.2, AST 10, ALT 11, alkaline p hosphatase 191, lactate of 3.7. CK of 41, CK-MB of 0.5. Troponin less than 0.1. CT of the brain a t outside ER showed no acute intracranial findings, did show a shunt catheter in place with minimal decrease in size of ventricles as compared to previous. Chest x-ray also showed no acute cardiopulm onary processes. The patient was admitted to tele observation and was found to have positive orthos tatic hypotension along with her hypertensive urgency. She was asymptomatic in the hospital stating that she occasionally felt \\\\"like she was swaying whenever she walked,\\\\" but otherwise had no sym ptoms. Her home blood pressure medications were not taken that evening so those were restarted the night of admission. During her admission, hydralazine 10 mg p.o. t.i.d. was also started to get bet ter blood pressure control. We are treating the orthostatic hypotension with IV fluids and monitori ng her symptoms and rechecking orthostatics periodically. In terms of her elevated white blood cell count, this seem to be elevated on her last few admissions, the admission for her shunt placement a nd the admission for her carotid endarterectomy. The white blood cell count was worked up extensive ly by Dr. Dominguez of Infectious Disease, and his entire workup was negative in November. We continued f urther workup of the white blood cell count with echo to rule out endocarditis and that was normal. Right upper quadrant ultrasound to rule out any infectious process of the gallbladder and that was normal. I spoke to Dr. Huddleston, Infectious Disease, because Dr. Dominguez was out of town and Dr. Robson baker said that our workup was appropriate and since the patient had a negative procalcitonin, it was not likely that she was having any current bacterial infection and with no focal findings suspiciou s for infection. He recommended close followup with outpatient PCP. Due to the patient being on mu ltiple antihypertensive medications, we decided to check a renal ultrasound to evaluate for renal ar freddie stenosis. Results of the ultrasound were normal. No signs of renal artery stenosis. On the d ay of discharge 02/01/2017, patient stated that her symptoms had improved significantly since the da y of admission and stating that her balance had improved and she did not feel like she was swaying a s much. Neurosurgery was consulted and stated that they did not plan any intervention for her case at this time, stated that she should keep her followup appointment on the with Dr. Marcelo. C ardiovascular was consulted and also stated that they planned no intervention at this time that she should just follow up with her normal appointments. On the day of discharge, she was cleared from N eurosurgery perspective, cardiovascular perspective and Infectious Disease perspective. I spoke to the patient and her on the day of discharge about the plan to monitor her blood pressures an d monitor her symptoms to make sure that she goes from lying down supine position to sitting and sta nding position very slowly giving her body time to acclimate. Also stated that the patient would go home with additional blood pressure medication, hydralazine 10 mg p.o. t.i.d. and also iron supplem ent. The patient has been in agreement with this plan and stated that they would follow up with Dr. Vega in [place], early next week and keep the Neurosurgery followup appointment. Blood and urine cultures were also taken during her admission and showed no growth. Other significant values that were worked up showed iron of 33, TIBC of 239, ferritin of 84, vitamin B12 of 700, procalcitonin of 0.03. C-reactive protein of 1.71. TSH of 0.9945. ESR of 37, normal blood smear. DISPOSITION: Guarded. DISCHARGE INSTRUCTIONS: 1. Location: Home. 2. Diet: Diabetic diet and heart healthy. 3. Activity: As tolerated with instructions to be careful taking her time to move from lying down position to a sitting position to a standing position. 4. Follow up with primary care Dr. Vega in [place] early next week and to keep normal Neurosurger y followup appointment.
[2017-02-05 10:21] LABS: A/G Ratio 0.9 (0.7-1.7); Albumin 2.8 g/dL (2.9-4.4); Alpha 1 0.3 g/dL (0.0-0.4); Alpha 2 1.1 g/dL (0.4-1.0); Beta 1.2 g/dL (0.7-1.3); Gamma 0.5 g/dL (0.4-1.8); M-Spike Not Observed g/dL (Not Observed)
== END 2017-02-01 12:46 | disposition home or self-care (01) ==
LOC: ERS 18:02 → 2SW 20:14
PROVIDERS: ADMIT Family Medicine; ATTEND Family Medicine
DX: I95.1 Orthostatic hypotension (principal); I16.0 Hypertensive urgency; E78.5 Hyperlipidemia, unspecified; E10.9 Type 1 diabetes mellitus without complications; D72.829 Elevated white blood cell count, unspecified; Z79.4 Long term (current) use of insulin; Z79.899 Other long term (current) drug therapy; Z90.710 Acquired absence of both cervix and uterus; Z87.891 Personal history of nicotine dependence; Z82.49 Family history of ischemic heart disease and other diseases of the circulatory system
CPT/HCPCS: 76705; 76770; 80048; 81001; 82607; 82728; 82747; 82962 ×3; 83010; 83036; 83540; 83550; 83605; 83615; 84145; 84165; 84443; 85007; 85014; 85025 ×2; 85027; 85046; 85652; 86140; 87040; 87086; 90670; 93005; 93306; 96361 ×2; 96365; 96366; 96375 ×2; 99285; G0009; G0378; 36415; 36416; 76700; 85060; 90471; 90682; 93010; 96374; G0008; J0360; J0696; J1815; J3480; J7050; Q2036

== ENCOUNTER 2017-02-12 12:45 | Outpatient (CLI) | payer MEDICARE ==
--- NOTE | 2017-02-12 13:43 | CT ---
HEAD CT WITHOUT CONTRAST: Date: 02-12-17 Comparison: 12-02-16 History: Hydrocephalus, shunt tube placement. Technique: Serial axial CT imaging is obtained at 4.5 mm intervals from vertex through skull base wi thout contrast. FINDINGS: Ventriculoperitoneal shunt tube is present, inserted via a right parietal approach, distal tip of sh unt tube approaching the anterior aspect of the cavum septum pellucidum. Mildly prominent symmetric subdural fluid noted in bilateral frontal regions with no discrete eviden ce for acute hemorrhage. No midline shift or mass effect. The previously noted mild prominence of the temporal horns of bilateral lateral ventricles is no kenzie jeronimo present. There is a mild rounded configuration involving the frontal horn of bilateral lateral v entricles, improved since the prior exam. There is a punctate focus of hypodensity within the anteri or aspect of the frontal horn left lateral ventricle suggesting a punctate focus of pneumocephalus. IMPRESSION: 1. Interval placement of a ventriculoperitoneal shunt tube. There has been mild interval decompressi on of the ventricular system. There is mild new prominence of the subdural space bilaterally, symmet durga in nature, with no evidence for mass effect. This likely represents either subacute/chronic subd ural hematomas associated with prior surgical procedure or mild prominence of the extraaxial space s econdary to decompression of the ventricular system. No evidence for acute hemorrhage is seen. If cl inically warranted, follow up CT examination advised. POS: [facility]
--- OUTSIDE RECORDS SUMMARY | 2017-02-14 07:32 | XMS | Clinical Summary ---
:1950 Author Organization [facility] Address [address] [place] [address] Phone Care Team Providers Name Role Phone [...] Not on file Implants Implanted Type Area Power Station Operator Device Expiration Model / Identifier Date Serial / Lot Iol Tecnis [id number] 23.5 Robin [id number] - [id number] Ophthalmology [employer] 04/29/2019 [id number] / Implanted:Qty: 1 on 08/24/2015 by José Miguel Vaughan MD [id number] / Results Not on filefrom Last 3 Months
== END 2017-02-12 12:46 | disposition home or self-care (01) ==
LOC: TBSIIMAG 12:45
PROVIDERS: ATTEND Neurological Surgery
DX: G91.9 Hydrocephalus, unspecified (principal); Z98.2 Presence of cerebrospinal fluid drainage device
CPT/HCPCS: 70450

== ENCOUNTER 2017-05-11 19:41 | Inpatient (IN) | payer MEDICARE ==
[2017-05-11] MEDS ORDERED: Fentanyl 100 MCG/2 ML VIAL ONE (20:08)
--- NOTE | 2017-05-11 20:29 | RAD ---
PORTABLE CHEST: 05/11/17 HISTORY: Preoperative evaluation. The lungs are clear. Heart and mediastinum are unremarkable. Central line has tip overlying the SVC/r ight atrium. IMPRESSION: No acute abnormality. POS: [facility]
--- NOTE | 2017-05-11 20:37 | RAD ---
AP PELVIS: 05/11/17 HISTORY: Trauma with injury to left hip. The pelvis appears intact. There is a subcapital fracture involving the left hip. Right hip appears i ntact. Dialysis catheter overlie the abdomen. IMPRESSION: Evidence of subcapital fracture of left hip. POS: [facility]
--- NOTE | 2017-05-11 20:38 | RAD ---
LEFT HIP: 05/11/17 There is subcapital fracture involving the left femoral neck. Left pelvis appears intact. IMPRESSION: Subcapital fracture left hip. POS: [facility]
--- NOTE | 2017-05-11 20:39 | RAD ---
LEFT SHOULDER: 05/11/17 Two views. HISTORY: Injury to left shoulder with pain. IMPRESSION: There is a mildly comminuted displaced fracture of the left humeral head and neck. POS: [facility]
[2017-05-11 20:49] LABS: PTT 29.5 SEC (22.9-36.1)
[2017-05-11] MEDS ORDERED: hydrALAZINE 20 MG/ML VIAL ONE (20:49)
[2017-05-11] MEDS ORDERED: traMADol HCl 50 MG TAB PO PRN ×2 (21:22)
[2017-05-11] MEDS ORDERED: Ondansetron ODT 4 MG TAB PO PRN (21:23)
[2017-05-11] MEDS ORDERED: Dextrose 50% Abboject 50 ML SYRINGE SLOW IVP PRN (21:23)
[2017-05-11] MEDS ORDERED: Dextrose 5% in Water 1,000 ML IV PRN (21:23)
[2017-05-11] MEDS ORDERED: Morphine 4 MG/ML Carpuject SLOW IVP PRN (21:23)
[2017-05-11] MEDS ORDERED: Ondansetron HCl/PF 4 MG/2 ML Vial IVP PRN (21:23)
[2017-05-11 22:30] LABS: Bilirubin Negative (Negative); Blood, Urine Negative (Negative); Clarity CLOUDY (Clear); Glucose, Urine (Dipstick) >=1000 mg/dL (Negative); Leukocyte Negative (Negative); Nitrite Negative (Negative); Protein, Urine (Dipstick) 100 mg/dL (Neg-Trace); Specific Gravity, Urine 1.021 (1.002-1.036); Urobilinogen 0.2 mg/dL (0.2-1.0); pH, Urine 5.5 (5.0-9.0)
[2017-05-11 22:33] LABS: Bacteria/HPF None Seen HPF (None Seen); Hyaline Casts/LPF 0-3 HYALINE CAST LPF (0-3 Hyaline); Pathc Cast-AUWi Flag 0.67 (0-2.49); RBC/HPF 0-3 HPF (0-3); Squamous Epithelial 0-3 HPF (0-3); WBC/HPF 0-3 HPF (0-3)
--- NOTE | 2017-05-11 23:23 | HP ---
DATE OF SERVICE: 05/11/2017 ATTENDING PHYSICIAN: Dr. João Tolentino. TRAUMA ACTIVATION: Not applicable. HISTORY OF PRESENT ILLNESS: Nini Rodriguez is a 66-year-old female who was a transfer from [place] [facility] sp[facility] status post fall. Per patient, she was walking on a wet tile floor earlier today and slipped and fell landing on her left side. She had immediate onset of left-sided pain and inability to ambul ate. Patient was evaluated in [place] [facility] and found to have a left hip fracture and a l eft humeral head fracture. She was transferred to [facility] for further care and managemen t. Upon my evaluation, patient has a chief complaint of left arm and left hip pain. She states her current pain is 3/10. Pain is constant. She is unable to ambulate. Pain is worsened with movement, and relieved by pain medications. ALLERGIES: None. HOME MEDICATIONS: Patient's spouse to bring in home medication list with doses. PAST MEDICAL HISTORY: Type 1 diabetes, peripheral vascular disease, status post carotid endarterecto my, normal pressure hydrocephalus, status post shunt placement, hypertension, and hyperlipidemia. PAST SURGICAL HISTORY: Hysterectomy, shunt for NPH, and carotid endarterectomy as well as cataract s urgery. SOCIAL HISTORY: Lives at home with her spouse. 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 Remote history of tobacco use. Denies illicit drug use. FAMILY HISTORY: Significant for both parents who are in their 80s from coronary artery dise ase. REVIEW OF SYSTEMS: Negative except as indicated in the HPI. Specifically, the patient denied fevers , chills, nausea, vomiting, chest pain, shortness of breath, abdominal pain, dysuria, hematuria, vegas ge in bowel or bladder habits, palpitations, syncopal symptoms, or presyncope. PHYSICAL EXAMINATION: VITAL SIGNS: On evaluation, blood pressure 183/70, pulse 82, respirations 18, O2 sat 96% on room air , temperature 98.3. GENERAL: Well-developed elderly female in no acute distress, resting in bed. HEAD: Normocephalic, atraumatic. EYES: Pupils are PERRL. Extraocular movements are intact. NECK: Supple. Trachea is midline. CHEST/PULMONARY: Atraumatic, normal work of breathing, symmetric rise. LUNGS: Clear to auscultation bilaterally. CARDIOVASCULAR: Regular rate and rhythm, no obvious murmurs, rubs, or gallops. GASTROINTESTINAL: Soft, nontender, nondistended. Bowel sounds are positive. BACK: Being reported as within normal limits. MUSCULOSKELETAL: Right upper extremity within normal limits. Left upper extremity has some bruising in the upper arm with tenderness to palpation and limited range of motion secondary to pain. Right lower extremity within normal limits. Left lower extremity appears mildly shortened and she has tend erness to palpation in the left hip. She is neurovascularly intact, distal to the side of her injuri es. NEUROLOGIC: GCS of 15. No focal deficit is noted. LABORATORY FINDINGS: INR is 1.0. Sodium 137, potassium 4.6, chloride 99, carbon dioxide 26, BUN 21. 4, glucose 360, creatinine 1.4. WBC 12.98, hemoglobin 10.9, hematocrit 32, platelet count 268. RADIOGRAPHIC FINDINGS. EKG was normal sinus rhythm. Chest x-ray without acute traumatic process or acute cardiopulmonary process. X-ray of the pelvis was significant, was read by Radiology as demonst rating a subcapital left hip fracture. Left hip x-ray demonstrated the same. X-ray of the left shou lder demonstrated a fracture of the left humeral head and humeral neck. ASSESSMENT: 1. Status post mechanical fall. 2. Acute traumatic pain. 3. Left humerus fracture. 4. Left hip fracture. 5. Hypertension. 6. Type 1 diabetes. 7. History of hyperlipidemia and peripheral vascular disease. 8. History of NPH, status post shunt placement. PLAN: 1. Admit to Trauma Services. Discussed the case with Orthopedic Surgery who plans for operative int ervention in the morning. Patient will be n.p.o. after midnight. Perioperative pain management. Po stoperative PT and OT. 2. Deep venous thrombosis and gastritis prophylaxis as appropriate. Patient should receive 10 units of insulin now. Accu-Cheks and sliding scale insulin as appropriate. 3. The patient should have IV p.r.n. antihypertensives until home medications can be reconciled. Pl ans for admission were discussed with the patient and spouse at bedside. All questions answered at t sharath of this dictation. Trauma attending has been notified admission.
[2017-05-11] MEDS: Sodium Chloride 0.9% 1,000 ML IV SCH (23:50)
[2017-05-11] MEDS: Acetaminophen 1,000 MG in Premix Bag 1 BAG IVPB SCH (23:51)
[2017-05-11] MEDS: hydrALAZINE 20 MG/ML VIAL SLOW IVP PRN (23:51)
[2017-05-12] MEDS ORDERED: Labetalol HCl 100 MG/20 ML VIAL SLOW IVP PRN (00:56)
[2017-05-12] MEDS ORDERED: HumaLOG 300 UNITS/3 ML VIAL SC SCH (01:00)
[2017-05-12 01:39] VITALS: BMI 23.8
[2017-05-12] MEDS ORDERED: HumaLOG 300 UNITS/3 ML VIAL SC PRN (03:00)
[2017-05-12 05:33] LABS: #Lymphocytes 1.8 thou/uL (1.20-3.40); #Neutrophils 12.6 thou/uL (1.40-6.50); %Basophils 0.1 % (0.0-1.0); %Eosinophils 0.3 % (0.0-10.0); %Lymphocytes 11.6 % (21.0-51.0); %Monocytes 6.5 % (0.0-10.0); %Neutrophils 81.5 % (42.0-75.0); Mean Corpuscular HGB CONC 33.6 g/dL (32.0-36.0); Mean Corpuscular Hemoglobin 31.3 pg (27.0-31.0); Mean Corpuscular Volume 93.2 fl (81.0-99.0); Mean Platelet Volume 8.1 fL (7.4-10.4); Platelet Count 298 thou/uL (130-400); RBC Distribution Width 11.8 % (11.5-14.5); White Blood Cell (WBC) Count 15.4 thou/uL (4.8-10.8)
[2017-05-12 05:47] LABS: Anion Gap 11 mmol/L (10-20); BUN (Urea Nitrogen) 24 mg/dL (9.8-20.1); Calc. Creatinine Clearance 46 mL/min (70-130); Calcium 9.5 mg/dL (7.8-10.44); Carbon Dioxide 28 mmol/L (23-31); Chloride 104 mmol/L (98-107); Estimated GFR-MDRD 48; Glucose 117 mg/dL (80-115); Magnesium 1.8 mg/dL (1.6-2.6); Phosphorus 4.3 mg/dL (2.3-4.7); Potassium 4.1 mmol/L (3.5-5.1); Sodium 139 mmol/L (136-145)
[2017-05-12] MEDS: Acetaminophen 1,000 MG in Premix Bag 1 BAG IVPB SCH ×3 (05:59→17:54)
[2017-05-12] MEDS ORDERED: CEFAZOLIN/Water 2 GM/20 ML SYRINGE SLOW IVP SCH (07:15)
--- NOTE | 2017-05-12 07:59 | CON ---
DATE OF CONSULTATION: 05/12/2017 ORTHOPEDIC CONSULTATION REQUESTING PHYSICIAN: Dr. João Tolentino. HISTORY OF PRESENT ILLNESS: Ms. Rodriguez is a pleasant 66-year-old left hand dominant lady who was santos sferred to [facility] from [facility] following a ground level fall in her home. She reports that she was walking on some wet floor tiles on the evening of 05/11/2017 when sh e slipped and landed on her left side. She reports immediate onset of left-sided shoulder and hip pa in. She was seen and evaluated at the [place] [facility] where x-rays demonstrated a minimally displaced left subcapital femoral neck fracture and a displaced left humeral neck fracture with a gr eater tuberosity also fractured. She was transferred to [facility] for further care. She was admitt ed to the Trauma Service per protocol and orthopedic consultation requested. The patient is otherwis e awake and alert and her chief complaint is left shoulder pain. PAST MEDICAL HISTORY: Remarkable for type 1 diabetes, peripheral vascular disease, normal pressure h ydrocephalus, hypertension, hyperlipidemia. PAST SURGICAL HISTORY: Includes hysterectomy, shunt for normal pressure hydrocephalus, carotid endar terectomy, and cataract surgery. Patient was on Plavix following her carotid endarterectomy; however , this was stopped 3 months ago. MEDICATIONS: Include aspirin 81 mg p.o. daily, Lipitor, bupropion, ferrous sulfate, Humalog, hydrala zine, Lantus, Namenda, Actos, ramipril, verapamil. ALLERGIES: None known. SOCIAL HISTORY: She lives in the [place] area with her . She was an independent ambulator prior to this fall. She uses alcohol socially. Has a past history of tobacco use, but none currentl y and denies recreational drug use. FAMILY HISTORY: Remarkable for coronary artery disease in parents. REVIEW OF SYSTEMS: Denies recent fevers, chills or sweats. Denies shortness of breath or chest pain . Has some stocking dysesthesias distally. PHYSICAL EXAMINATION: VITAL SIGNS: Temperature of 98.6, heart rate of 102, respiratory rate of 18, and blood pressure 158/ 66. Patient is examined at bedside. HEENT: Atraumatic, normocephalic. HEART: Remarkable for regular rate and rhythm. LUNGS: Remarkable for good air movement and breathing is unlabored. ABDOMEN: Flat, nontender. Pelvis is stable. EXTREMITIES: Remarkable for right upper and lower extremities that are atraumatic. Left upper extre mity remarkable for some bruising in the upper arm and anterior chest wall. She has tenderness to pa lpation in the humeral shaft, does appear to be displaced anteriorly. Elbow, wrist and hand are atra umatic. The left lower extremity is remarkable for no deformity. There is no shortening or internal rotation at the hip, but she does have groin pain with log rolling of the thigh. Knee, ankle and fo ot are atraumatic. LABORATORY DATA: Shows a white count of 15.4, hematocrit 29.8 and 298,000 platelets. Her BUN and c reatinine are elevated at 24 and 1.3 respectively. X-RAYS: AP pelvis x-ray and two view x-ray of the left hip remarkable for a valgus impacted subcapit al femoral neck fracture. Two view x-ray of the left shoulder demonstrates a fracture of the left hu meral neck with anterior displacement of the shaft from underneath the head, although there is still some continuity between the head and shaft. There is also a fracture extending into the greater tube rosity. ASSESSMENT: A 66-year-old left hand dominant lady status post ground level fall sustaining fractures of both left humeral neck and left femoral neck. Extensive past history of peripheral vascular dise ase and diabetes. PLAN: Today, I have had a long discussion with the patient and her regarding the nature of h er injuries as well as treatment options. With respect to the hip, we discussed things such as vaishnavi alvarado screw stabilization versus arthroplasty. Given the fact that this is minimally displaced and t he patient is still young, I would like to proceed with screw fixation in hopes of obtaining bony uni on for a long lasting hip that will serve her well in the future. I believe this also minimizes any bleeding risks given the long-term aspirin and her risks for further cardiovascular event. With resp ect to the proximal humerus, we have also again discussed attempts closed reduction and pinning versu s shoulder replacement versus osteosynthesis. At this time, we are going to attempt a closed reducti on. If this is not successful, we will wean patient from her aspirin and place her on anticoagulants and then bring her back electively for either formal open reduction and internal fixation versus kaykay ulder replacement. Patient appears comfortable with our discussion and plan. We will proceed with c annulated screw fixation for the left femoral neck and attempt a closed reduction for the proximal hu merus fracture. The risks include, but are not limited to bleeding, infection, nerve injury, DVT, PE , other cardiovascular incident, malunion, nonunion, need for revision surgery. Patient appears to u nderstand and does wish to proceed. Consent will be obtained prior to surgery.
[2017-05-12] MEDS ORDERED: Fentanyl 100 MCG/2 ML VIAL ONE ×3 (08:12→10:08)
[2017-05-12] MEDS ORDERED: Midazolam HCl 2 mg/2 ml Vial ONE (08:12)
[2017-05-12] MEDS ORDERED: Fentanyl 100 MCG/2 ML VIAL SLOW IVP PRN (09:14)
[2017-05-12] MEDS ORDERED: Cepastat Lozenges 1 LOZ PO PRN (09:14)
[2017-05-12] MEDS ORDERED: Ondansetron ODT 4 MG TAB PO PRN (09:14)
[2017-05-12] MEDS ORDERED: Ondansetron HCl/PF 4 MG/2 ML Vial IVP PRN ×2 (09:14→10:05)
[2017-05-12] MEDS ORDERED: Bisacodyl 10 MG SUPP PR PRN (09:14)
[2017-05-12] MEDS ORDERED: Ketorolac Tromethamine 30 MG/ML VIAL IM PRN (09:14)
[2017-05-12] MEDS ORDERED: Milk Of Magnesia 30 ML UDCUP PO PRN (09:14)
[2017-05-12] MEDS ORDERED: Fleet Enema 133 ML BOT PR PRN (09:14)
[2017-05-12] MEDS ORDERED: Acetaminophen 325 MG TAB PO PRN (09:14)
[2017-05-12] MEDS ORDERED: HYDROcodone/Acetaminophen 10/325 mg Tablet PO PRN ×2 (09:21)
[2017-05-12] MEDS ORDERED: Ropivacaine 0.5% HCl/PF (150 MG/30 ML VIAL) ONE (09:38)
[2017-05-12] MEDS ORDERED: Lidocaine 1% (PF) 30 ML VIAL ONE (09:39)
--- NOTE | 2017-05-12 09:57 | RAD ---
SINGLE VIEW OF THE LEFT HIP: COMPARISON: 05/11/17. HISTORY: Left hip fracture. FINDINGS/IMPRESSION: A single limited fluoroscopic view of the left hip was submitted for interpretation. There are 3 per cutaneous screws spanning the left femoral neck fracture. No perihardware lucency is seen. POS: [facility]
[2017-05-12] MEDS ORDERED: Morphine 5 MG/ML SYRINGE SLOW IVP PRN (10:01)
[2017-05-12] MEDS ORDERED: Zolpidem Tartrate 5 MG TAB PO PRN (10:05)
[2017-05-12] MEDS ORDERED: Ropivacaine 0.2% 550 ML 550 ML NERVE BLCK SCH (10:05)
[2017-05-12] MEDS ORDERED: Promethazine HCl 25 MG/ML VIAL IM PRN (10:05)
[2017-05-12] MEDS ORDERED: HYDROcodone/Acetaminophen 5/325 mg Tablet PO PRN ×2 (10:05)
[2017-05-12] MEDS ORDERED: traMADol HCl 50 MG TAB PO PRN ×3 (10:05→19:05)
[2017-05-12] MEDS: Insulin NPH/Reg Insulin Hm 300 UNITS/3 ML VIAL SC SCH ×2 (12:25→14:38)
[2017-05-12] MEDS: Famotidine/PF 20 mg/2ml Vial SLOW IVP SCH ×2 (12:26→21:31)
[2017-05-12] MEDS: Sodium Chloride 0.9% 1,000 ML IV SCH (12:26)
[2017-05-12] MEDS ORDERED: Dextrose 5% in Water 1,000 ML IV PRN (12:38)
[2017-05-12] MEDS ORDERED: Dextrose 50% Abboject 50 ML SYRINGE SLOW IVP PRN (12:38)
--- NOTE | 2017-05-12 14:00 | RAD ---
TWO VIEWS OF THE LEFT SHOULDER: COMPARISON: 05/11/17. HISTORY: Left shoulder fracture or dislocation. FINDINGS/IMPRESSION: Two limited intraoperative fluoroscopic views of the left shoulder were submitted for interpretation. The patient has a comminuted fracture of the humeral neck. There is no evidence of dislocation of the glenohumeral joint on these provided images. POS: [facility]
[2017-05-12] MEDS: hydrALAZINE 10 MG TAB PO SCH ×2 (14:38→21:29)
[2017-05-12] MEDS ORDERED: PHENYLEPHRINE-NS 100 MCG/ML 10 ML SYRINGE ONE (16:05)
[2017-05-12] MEDS ORDERED: Lidocaine 1% PF 5 ML VIAL ONE (16:05)
[2017-05-12] MEDS ORDERED: Ondansetron HCl/PF 4 MG/2 ML Vial ONE (16:05)
[2017-05-12] MEDS ORDERED: Glycopyrrolate 0.2 MG/ML 5 ML SYRINGE ONE (16:05)
[2017-05-12] MEDS ORDERED: Ketorolac Tromethamine 30 MG/ML VIAL ONE (16:05)
[2017-05-12] MEDS ORDERED: Propofol 200 MG/20 ML VIAL ONE (16:05)
[2017-05-12] MEDS: CEFAZOLIN/Water 2 GM/20 ML SYRINGE SLOW IVP SCH (16:29)
--- NOTE | 2017-05-12 17:19 | OP ---
DATE OF SURGERY: 05/12/2017 PREOPERATIVE DIAGNOSES: 1. Left subcapital femoral neck fracture. 2. Left 3-part proximal humerus fracture. POSTOPERATIVE DIAGNOSES: 1. Left subcapital femoral neck fracture. 2. Left 3-part proximal humerus fracture. SURGICAL PROCEDURES: 1. Closed reduction and percutaneous screw fixation of left femoral neck fracture. 2. Closed reduction of left proximal humerus fracture. ANESTHESIA: General. SURGEON: Kenyon Jade M.D. BLOOD LOSS: Less than 5 mL IMPLANTS: Synthes 7.3 mm cannulated screws x3. COMPLICATIONS: None. DRAINS: None. SPECIMENS: None. OUTCOME: Satisfactory. INDICATIONS: The patient is a pleasant 66-year-old lady status post ground level fall at home sustai augusto fractures of both left femoral neck and left humeral neck. Preoperatively, I discussed with gutierrez satya and her treatment options. Given the minimal valgus impacted nature of the femoral neck fracture, we have discussed and decided upon an attempt at reduction and cannulated screw stabilizat ion. We also briefly discussed the potential need for total hip arthroplasty should this stabilizati on procedure failed. We also discussed the desire to proceed with a closed reduction of the displace d humeral neck fracture and attempt to avoid the need for either a formal open osteosynthesis versus arthroplasty. Risks and benefits also discussed with family. I believe all questions have been answ ered, informed consent has been obtained. DESCRIPTION OF PROCEDURE: The patient was brought to the operating room and a timeout was performed followed by induction of general anesthesia. The patient was positioned supine on the fracture table with the injured left lower extremity held in longitudinal traction and slight internal rotation. W ith gentle manipulation, the fracture could be reduced to a near anatomic level. Once reduced, a michelle rile prep and drape was performed of the left lateral thigh. Under C-arm guidance, a skin incision w as localized and then following the skin incision, dissection was carried down to the underlying late ral cortex of the proximal femur. Next, a threaded guidewire was passed from the lateral cortex of t he proximal femur up the femoral neck into the lower quadrant of the femoral head. This was checked with AP and lateral C-arm images. Next, two additional threaded guidewires were passed, one anterior superior to the first and the other posterior superior to the first wire. These were checked on bot h AP and lateral images and showed good alignment of the fracture and appropriate positioning of thes e pins. Next, appropriate length 7.3 mm cannulated screws were passed over each of the guidewires in standard fashion. This resulted in excellent stability of the hardware with good purchase of the kita ne and felt to be good stabilization at the fracture site. The wound was then irrigated with bulb sy ringe and normal saline and closed in layers with 2-0 Vicryl deep, followed by chucky for the skin. A Xeroform gauze and tape dressing was then applied to the lateral thigh. The patient was kept on t he fracture table and then attention was placed at the left upper extremity. She had a displaced hum eral neck fracture with the shaft anterior to the head. As such, the shoulder was brought into a fle xed posture of approximately 100 degrees and then a gentle downward pressure was applied to the proxi mal shaft. This resulted in a palpable and audible crepitation at the fracture site with improved ov erall gross alignment of the arm. AP and external rotation and lateral x-rays were then obtained of the shoulder. These were 90 degrees opposed films showed acceptable alignment of the fracture with j ust a slight varus alignment on the true AP view, but overall significantly improved and felt to be a cceptable if indeed we were able to achieve healing in this position. The arm was manipulated bit mo re and found to be relatively stable in this new position. As such, the arm was then placed in a kaykay ulder immobilizer and then patient was transferred to recovery room in stable condition. There were no complications. The patient tolerated the procedure well.
[2017-05-12] MEDS: HumaLOG 300 UNITS/3 ML VIAL SC PRN (17:55)
--- NOTE | 2017-05-12 20:02 | PRG ---
DATE OF SERVICE: 05/12/2017 SUBJECTIVE: Ms. Nini Rodriguez is a 66-year-old female hospital day #2, postop day #0, status post fall , hip fracture and hip fracture repair. Upon my evaluation, the patient vocalized no complaints this evening. OBJECTIVE: VITAL SIGNS: Reviewed. The patient is mildly hypertensive and mildly tachycardic. GENERAL: Resting in bed in no acute distress. Breathing is nonlabored. No focal deficit is noted. ASSESSMENT AND PLAN: Assessment in documented in the daily progress note. The patient to resume sarah beth e medications/oral antihypertensives this evening. Pain is controlled via p.o. analgesics and nerve block. Continue care as ordered. Continue to monitor. PT, OT tomorrow. A.m. labs.
[2017-05-12] MEDS: Bupropion 150 MG SR TAB PO SCH (21:28)
[2017-05-12] MEDS: Atorvastatin Calcium 40 MG TAB PO SCH (21:29)
[2017-05-12] MEDS: Senokot S 8.6-50 MG TAB PO SCH (21:30)
[2017-05-13] MEDS: Acetaminophen 500 MG TAB PO SCH ×4 (00:20→17:48)
[2017-05-13] MEDS: CEFAZOLIN/Water 2 GM/20 ML SYRINGE SLOW IVP SCH (00:20)
[2017-05-13] MEDS: traMADol HCl 50 MG TAB PO PRN ×2 (00:51→20:59)
[2017-05-13] MEDS: hydrALAZINE 20 MG/ML VIAL SLOW IVP PRN (01:18)
[2017-05-13 05:24] LABS: #Eosinphils 0.3 thou/uL (0.0-0.7); #Lymphocytes 1.2 thou/uL (1.20-3.40); #Monocytes 0.8 thou/uL (0.11-0.59); %Basophils 0.3 % (0.0-1.0); %Eosinophils 1.8 % (0.0-10.0); %Lymphocytes 7.9 % (21.0-51.0); %Monocytes 4.9 % (0.0-10.0); %Neutrophils 85.1 % (42.0-75.0); Hemoglobin 9.2 g/dL (12.0-16.0); Mean Corpuscular HGB CONC 32.8 g/dL (32.0-36.0); Mean Corpuscular Hemoglobin 31.2 pg (27.0-31.0); Mean Corpuscular Volume 95.1 fl (81.0-99.0); Mean Platelet Volume 8.5 fL (7.4-10.4); Platelet Count 236 thou/uL (130-400); RBC Distribution Width 11.7 % (11.5-14.5); Red Blood Cell (RBC) Count 2.96 mill/uL (4.20-5.40); White Blood Cell (WBC) Count 15.3 thou/uL (4.8-10.8)
[2017-05-13 05:43] LABS: Anion Gap 17 mmol/L (10-20); BUN (Urea Nitrogen) 20 mg/dL (9.8-20.1); Calc. Creatinine Clearance 48 mL/min (70-130); Calcium 8.4 mg/dL (7.8-10.44); Carbon Dioxide 19 mmol/L (23-31); Chloride 102 mmol/L (98-107); Estimated GFR-MDRD 51; Glucose 333 mg/dL (80-115); Magnesium 1.5 mg/dL (1.6-2.6); Phosphorus 2.8 mg/dL (2.3-4.7); Potassium 4.4 mmol/L (3.5-5.1); Sodium 134 mmol/L (136-145)
[2017-05-13] MEDS: HumaLOG 300 UNITS/3 ML VIAL SC PRN ×3 (07:00→17:48)
[2017-05-13] MEDS ORDERED: Magnesium Sulfate 4 GM in Sodium Chloride 0.9% 250 ML 250 ML IVPB SCH (08:00)
[2017-05-13] MEDS: Ferrous Gluconate 324 MG TAB PO SCH ×2 (08:59→17:48)
[2017-05-13] MEDS: Bupropion 150 MG SR TAB PO SCH ×2 (09:00→20:56)
[2017-05-13] MEDS: Senokot S 8.6-50 MG TAB PO SCH ×2 (09:00→20:59)
[2017-05-13] MEDS ORDERED: INSULIN GLARGINE HUM REC ANLOG 26 UNIT SC SCH (09:00)
[2017-05-13] MEDS: Enoxaparin Sodium 30 MG/0.3 ML SYRINGE SC SCH (09:00)
[2017-05-13] MEDS: Multivitamin W/ Minerals 1 TAB PO SCH (09:01)
[2017-05-13] MEDS: hydrALAZINE 10 MG TAB PO SCH ×3 (09:01→20:57)
[2017-05-13] MEDS: Ramipril 5 MG CAP PO SCH ×2 (09:01→20:58)
[2017-05-13] MEDS: Pioglitazone HCl 15 MG TAB PO SCH (09:01)
[2017-05-13] MEDS: Famotidine/PF 20 mg/2ml Vial SLOW IVP SCH ×2 (09:01→20:56)
[2017-05-13] MEDS: INSULIN DETEMIR SC SCH (09:02)
[2017-05-13] MEDS: PRE FILLED SC SCH (09:02)
--- NOTE | 2017-05-13 17:01 | PRG ---
DATE OF SERVICE: 05/13/2017 SUBJECTIVE: The patient is hospital day #2, postop day #1, status post ground level fall in which sh e sustained a left proximal humerus and left proximal femur fracture. Yesterday, she underwent ortho pedic procedure with Dr. Jade to include a closed reduction and percutaneous screw fixation of th e left femoral neck fracture and a closed reduction of the left proximal humerus fracture. The patie nt tolerated the procedure well, did not have any complaints overnight. She had her home medications , specifically her diabetes medicines restarted. This morning, the patient was tolerating a diet. H er pain was controlled. She is awaiting her first physical and occupational therapy sessions. OBJECTIVE: VITAL SIGNS: Temperature is 99, heart rate 99, blood pressure 141/56, respirations 16, oxygen satura tion is 92% on room air. GENERAL: The patient is resting comfortably in bed. She is alert and oriented x3. [place] coma sca le is 15. HEENT: Unremarkable. LUNGS: Clear to auscultation bilaterally. HEART: Regular rate and rhythm. ABDOMEN: Soft, flat, nontender with active bowel sounds. EXTREMITIES: Left upper extremity is in a sling. Left lower extremities: Postop dressing is clean, dry, and intact. Extremities are neurovascularly intact x4. ASSESSMENT AND PLAN: 1. Status post ground level fall. 2. Status post orthopedic procedures as above. Plan will be to continue supportive care, physical and occupational therapy and await placement decis ion. The patient was evaluated with Dr. Diaz this morning during rounds.
[2017-05-13] MEDS: Atorvastatin Calcium 40 MG TAB PO SCH (20:55)
--- NOTE | 2017-05-13 21:55 | PRG ---
DATE OF SERVICE: 05/13/2017 SUBJECTIVE: This patient is in hospital day 2, postop day 1, status post ground level fall, hip frac ture repair. The patient worked with physical therapy earlier today. This evening she vocalized no complaints. OBJECTIVE: VITAL SIGNS: Reviewed. The patient is hypertensive but is due to receive her p.o. antihypertensives . The patient is resting in bed, in no acute distress. RESPIRATORY: Breathing is nonlabored. ASSESSMENT AND PLAN: As documented in daily progress note. Continue care as ordered. Continue to m onitor. Await eventual disposition.
[2017-05-14] MEDS: Acetaminophen 500 MG TAB PO SCH ×4 (00:11→17:25)
[2017-05-14 05:37] LABS: Hemoglobin 8.3 g/dL (12.0-16.0); Mean Corpuscular HGB CONC 32.8 g/dL (32.0-36.0); Mean Corpuscular Hemoglobin 30.8 pg (27.0-31.0); Mean Corpuscular Volume 93.9 fl (81.0-99.0); Platelet Count 221 thou/uL (130-400); RBC Distribution Width 11.6 % (11.5-14.5); White Blood Cell (WBC) Count 12.3 thou/uL (4.8-10.8)
[2017-05-14] MEDS: Ferrous Gluconate 324 MG TAB PO SCH ×2 (08:26→17:25)
[2017-05-14] MEDS: Bupropion 150 MG SR TAB PO SCH ×2 (08:27→21:17)
[2017-05-14] MEDS: Enoxaparin Sodium 30 MG/0.3 ML SYRINGE SC SCH (08:28)
[2017-05-14] MEDS: Famotidine/PF 20 mg/2ml Vial SLOW IVP SCH ×2 (08:28→21:17)
[2017-05-14] MEDS: INSULIN DETEMIR SC SCH (08:29)
[2017-05-14] MEDS: PRE FILLED SC SCH (08:29)
[2017-05-14] MEDS: hydrALAZINE 10 MG TAB PO SCH ×3 (08:29→21:17)
[2017-05-14] MEDS: Pioglitazone HCl 15 MG TAB PO SCH (08:31)
[2017-05-14] MEDS: Multivitamin W/ Minerals 1 TAB PO SCH (08:31)
[2017-05-14] MEDS: Senokot S 8.6-50 MG TAB PO SCH ×2 (08:31→21:19)
[2017-05-14] MEDS: Ramipril 5 MG CAP PO SCH ×2 (08:31→21:18)
[2017-05-14] MEDS ORDERED: hydrALAZINE 10 MG TAB PO SCH ×3 (08:38→15:00)
--- NOTE | 2017-05-14 19:05 | PRG ---
DATE OF SERVICE: 05/14/2017 ATTENDING PHYSICIAN: Dr. Dmitri Diaz. SUBJECTIVE: The patient is postoperative day #2, status post repair of subcapital femoral neck fract ure and left proximal humerus fracture. She has been stable on the surgical floor since the procedur e. She has not had any postoperative complications. She has had her home medication regimen, specif ically her diabetes medications were restarted. She is tolerating a regular diet. Her pain has been well controlled. She is mobilizing with physical and occupational therapy. Case management is foll owing for discharge planning. OBJECTIVE: VITAL SIGNS: Temperature 98.5, pulse 84, blood pressure is 165/77, respirations 16, O2 sat 94% on ro om air. GENERAL: Patient is sitting up in a chair. She is awake, alert, and oriented x3. Nontoxic appearin g. Does not appear to be in any pain. HEENT: Atraumatic, normocephalic. PULMONARY: Respirations even, unlabored. No respiratory distress. CARDIOVASCULAR: Regular rate and rhythm. ABDOMEN: Soft, flat, nontender. EXTREMITIES: Neurovascularly intact in all extremities. Cap refill brisk. ASSESSMENT: 1. Status post ground level fall. 2. Status post multiple orthopedic procedures to repair fractures. 3. History of diabetes with poorly controlled and fluctuating blood sugars while in the hospital. PLAN: 1. Increase hydralazine to 20 mg t.i.d. to better control blood pressure. 2. Change Levemir to 10 mg b.i.d. 3. The patient will need to follow up with PCP within 1 week of discharging from hospital for blood pressure and diabetes management. 4. Continue physical and occupational therapy. 5. Discharge to [facility] when approved. The patient was seen and examined with Dr. Diaz who agrees with the assessment and plan.
[2017-05-14] MEDS: Atorvastatin Calcium 40 MG TAB PO SCH (21:16)
--- NOTE | 2017-05-14 21:26 | PRG ---
DATE OF SERVICE: 05/14/2017 SUBJECTIVE: The patient is hospital day #3, postop day #2, status post ground level fall, hip fractu re repair. She mobilized with PT and OT. No postop complaints at this time. OBJECTIVE: VITAL SIGNS: Stable. Physical examination is unchanged. ASSESSMENT AND PLAN: Continue with current plan as documented in the progress note. Continue care a s ordered. Continue to monitor. Await eventual disposition of her discharge planning.
[2017-05-15] MEDS: Acetaminophen 500 MG TAB PO SCH ×3 (00:20→11:56)
[2017-05-15 05:47] LABS: Hemoglobin 8.7 g/dL (12.0-16.0); Mean Corpuscular HGB CONC 31.9 g/dL (32.0-36.0); Mean Corpuscular Hemoglobin 30.1 pg (27.0-31.0); Mean Corpuscular Volume 94.2 fl (81.0-99.0); Mean Platelet Volume 7.9 fL (7.4-10.4); Platelet Count 259 thou/uL (130-400); RBC Distribution Width 11.6 % (11.5-14.5); Red Blood Cell (RBC) Count 2.89 mill/uL (4.20-5.40); White Blood Cell (WBC) Count 12.9 thou/uL (4.8-10.8)
[2017-05-15] MEDS ORDERED: Insulin Detemir 100 UNITS/ML 10 UNITS in Pre-Filled Syringe 1 EACH SC SCH (09:00)
[2017-05-15] MEDS ORDERED: Famotidine 20 MG TAB PO SCH (09:00)
[2017-05-15] MEDS: Enoxaparin Sodium 30 MG/0.3 ML SYRINGE SC SCH (09:00)
[2017-05-15] MEDS: Ferrous Gluconate 324 MG TAB PO SCH (09:00)
[2017-05-15] MEDS: Bupropion 150 MG SR TAB PO SCH (09:01)
[2017-05-15] MEDS: hydrALAZINE 10 MG TAB PO SCH (09:02)
[2017-05-15] MEDS: Pioglitazone HCl 15 MG TAB PO SCH (09:04)
[2017-05-15] MEDS: Ramipril 5 MG CAP PO SCH (09:04)
[2017-05-15] MEDS: Multivitamin W/ Minerals 1 TAB PO SCH (09:04)
[2017-05-15] MEDS: Senokot S 8.6-50 MG TAB PO SCH (09:05)
[2017-05-15 12:48] VITALS: BP 150/53; TEMP 98.7
--- NOTE | 2017-05-15 20:59 | DIS ---
DATE OF ADMISSION: 05/11/2017 DATE OF DISCHARGE: 05/15/2017 ADMITTING PHYSICIAN: Dr. João Tolentino. CONSULTING PHYSICIAN: Dr. Kenyon Jade, Orthopedics REASON FOR HOSPITALIZATION: Ground level fall with left hip pain. HOSPITAL DIAGNOSES: 1. Left subcapital femoral neck fracture. 2. Left 3-part proximal humerus fracture. PROCEDURES PERFORMED: 1. Closed reduction and percutaneous screw fixation of left femoral neck fracture. 2. Closed reduction of left proximal humerus fracture. Date of surgery, 05/12/2017. SURGEON: Dr. Kenyon Jade. DISCHARGE CONDITION: Good to [facility]. BRIEF HISTORY OF HOSPITALIZATION: Ms. Rodriguez is a 66-year-old female who was a transferred from [facility], status post ground level fall. She was evaluated in the ER and found to have a left h ip fracture and left humeral head fracture. She was transferred to [facility]. She was adm itted to the hospital by Trauma Services. Dr. Jade, Orthopedic, was consulted. He took the sloan ent to the OR on 05/12/2017 for fixation of fractures. Please refer to Dr. Jade complete operati ve note for details. Postoperatively, the patient began mobilizing with physical and occupational th erapy. Case management was consulted for discharge planning. She was accepted to [facility] ed. She will be nonweightbearing in the left upper extremity, 50% partial weightbearing in the left lower extremity. She is to follow up with Dr. Jade. There is no need for her to follow up with [facility]uma Services. She will continue physical and occupational therapy. She will continue regular t. The patient was seen and examined with Dr. Diaz, attending trauma surgeon, who agrees with the asses sment and discharge plan.
== END 2017-05-15 12:48 | disposition swing bed (61) | DRG 480 ==
LOC: ERS 19:41 → SURG B 20:23
PROVIDERS: ADMIT Specialist; ATTEND Specialist
PROC: 0QS734Z Reposition Left Upper Femur with Internal Fixation Device, Percutaneous Approach (ICD-10-PCS; principal; 2017-05-12)
PROC: 0PSG34Z Reposition Left Humeral Shaft with Internal Fixation Device, Percutaneous Approach (ICD-10-PCS; 2017-05-12)
DX: S42.202A Unspecified fracture of upper end of left humerus, initial encounter for closed fracture (principal); S72.012A Unspecified intracapsular fracture of left femur, initial encounter for closed fracture; E10.51 Type 1 diabetes mellitus with diabetic peripheral angiopathy without gangrene; G91.2 (Idiopathic) normal pressure hydrocephalus; E10.9 Type 1 diabetes mellitus without complications; I10 Essential (primary) hypertension; E78.5 Hyperlipidemia, unspecified
CPT/HCPCS: 36415; 36416; 51702; 71045; 72170; 76001; 80048; 81003; 81015; 83735; 84100; 85025; 85027; 85610; 85730; 86850; 86900; 86901; 96374; 96375; A4306; C1713; C1769; G0390; G8978-GP-CM; G8979-GP-CL; G8987-GO-CL; G8988-GO-CJ; J0131; J0360; J1650; J1815; J1885; J2001; J2250; J2405; J2704; J2795; J3010; J3475; J7050; S0028

== ENCOUNTER 2018-03-20 14:16 | Emergency (ER) | payer MEDICARE ==
[~2018-03-20 14:16] MED LIST: ISOVUE-370 76%-LOCM 1 ML ONE
--- NOTE | 2018-03-20 16:07 | CT ---
CT OF ABDOMEN AND PELVIS PERFORMED WITH IV CONTRAST ENHANCEMENT: Date: 03/20/18 HISTORY: Abdominal pain. Vomiting. History of ventriculoperitoneal shunt tube. FINDINGS: The lung bases are clear. There are some tiny, 1-2 mm, right lower lobe pulmonary nodules, probably n ot of significance. The liver, spleen, pancreas, and gallbladder regions all appear unremarkable. Right and left adrenal glands, and right and left kidneys are normal in size. There is no significant periaortic adenopathy. There are small mesenteric lymph nodes noted. These are not felt to be signif icant. There is moderate atherosclerotic change of the aorta. CT of pelvis was performed with contrast enhancement. Sigmoid diverticulosis is noted. The distal end of the ventriculoperitoneal shunt tube is in the left side of the pelvis. The appendix region is unr emarkable. IMPRESSION: 1. Ventriculoperitoneal shunt tube in place. No signs of any free fluid in the abdomen or pelvis. 2. Sigmoid diverticulosis. POS: [facility]
== END 2018-03-20 17:43 | disposition home or self-care (01) ==
LOC: ERS 14:16
DX: G91.2 (Idiopathic) normal pressure hydrocephalus (principal); E10.9 Type 1 diabetes mellitus without complications; I10 Essential (primary) hypertension; Z87.891 Personal history of nicotine dependence; Z79.4 Long term (current) use of insulin; Z79.899 Other long term (current) drug therapy
CPT/HCPCS: 74177

== ENCOUNTER 2018-04-03 15:14 | Outpatient (CLI) | payer MEDICARE ==
--- NOTE | 2018-04-03 15:44 | CT ---
CT BRAIN NONCONTRAST: DATE: 04/03/2018. HISTORY: A 67-year-old female with hydrocephalus. COMPARISON: 03/20/2018. FINDINGS: Again noted is the [employer] shunt catheter inserting through the right posterior calvarium, traversing the body of the right lateral ventricle, with distal tip at the superior edge of the cavum septi pellucid i. There is also a cavum vergae. There has been a slight interval decrease in size of the mild to m oderate dilation of the lateral ventricles bilaterally, and of the 3rd ventricle. The 4th ventricle is mildly dilated. Again noted is the low-attenuation in the periventricular white matter adjacent t o the frontal horns of the lateral ventricles bilaterally. This could represent transependymal migra tion of CSF, chronic ischemic white matter changes, or a combination of both. There is no acute intr aaxial or extraaxial hemorrhage. No mass effect or midline shift. No extraaxial fluid collection. IMPRESSION: 1. Minimal interval improvement in the mild-moderate hydrocephalus. 2. Ventriculoperitoneal shunt catheter remains in place. SOTERO Castillo POS: [facility]
== END 2018-04-03 15:15 | disposition home or self-care (01) ==
LOC: TBSIIMAG 15:14
PROVIDERS: ATTEND Neurological Surgery
DX: G91.9 Hydrocephalus, unspecified (principal); Z98.2 Presence of cerebrospinal fluid drainage device
CPT/HCPCS: 70450

== ENCOUNTER 2018-04-30 13:59 | Outpatient (CLI) | payer MEDICARE ==
--- NOTE | 2018-04-30 15:58 | CT ---
HEAD CT WITHOUT CONTRAST: 04/30/2018 HISTORY: Re-evaluate shunt, hydrocephalus, and vomiting. COMPARISON: 04/03/2018, 03/20/2018 TECHNIQUE: Axial CT imaging obtained at 4.5 mm intervals, from the vertex through the skull base, without contra st. FINDINGS: A ventriculoperitoneal shunt is present, inserted via a right posteroparietal approach, distal tip te rminating in the region of the anterior aspect of the cavum septum pellucidum, stable when compared t o the 04/03/2018 exam. The imaged paranasal sinuses and mastoid air cells are well aerated. There i s atherosclerotic calcification of the cavernous carotid arteries. No acute osseous abnormality. There is no intracranial hemorrhage or midline shift. No mass effect is noted. The ventricular system is stable in size and configuration when compared to the 04/03/2018 exam. The ventricular system is less prominent than on the 03/20/2018 exam. IMPRESSION: Stable head CT when compared to the 04/03/2018 examination. Ventricular prominence appears to have i mproved since the 03/20/2018 examination. POS: [facility]
== END 2018-04-30 14:00 | disposition home or self-care (01) ==
LOC: TBSIIMAG 13:59
PROVIDERS: ATTEND Neurological Surgery
DX: G91.9 Hydrocephalus, unspecified (principal)
CPT/HCPCS: 70450